=== PATIENT | female | born 1980 | race Hispanic/Latino ===

== ENCOUNTER → 2025-02-01 | Outpatient (CLI) | payer BC ==
--- NOTE | 2025-02-03 00:33 | HMCSR ---
APPROVED REPORT Indications Uncontrolled HTN Renal Artery Doppler Origin (R) 90.7/24.6 cm/secOrigin (L) 96.9/30.8 cm/sec Proximal (R) 124.6/46.1 cm/secProximal (L) 118.4/41.5 cm/sec Mid (R) 116.9/44.6 cm/secMid (L) 125.4/45.0 cm/sec Distal (R) 118.4/40.0 cm/secDistal (L) 151.4/49.7 cm/sec Renal/Aorta Ratio (R) 0.96Renal Aorta Ratio (L) 1.17 Resistive Index (R) 0.62Resistive Index (L) 0.63 Segmental A. (R) 40.8/15.4 cm/secLt. Segmental A. (L) 20.8/7.7 cm/sec Renal Measurements Kidney Size (R) 12.1x5.4x5.8 cmKidney Size (L)11.7x6.2x5.8 cm Aortic Doppler VelocityWaveform Proximal Aorta 129.2 cm/sec Technologist Impression Based on the renal/aortic ratio there is no evidence of significant stenosis in the right and left re nal arteries. Both kidneys appear to be within normal size parameters (greater than 9.0cm and symmetrical). Conclusion The proximal abdominal aorta is patent without significant stenoses or dilatations. Based on the renal/aortic ratio there is no evidence of significant stenosis in the bilateral renal arteries. Both kidneys appear to be within normal size parameters (greater than 9.0cm and symmetrical). Conclusion The proximal abdominal aorta is patent without significant stenoses or dilatations. Based on the renal/aortic ratio there is no evidence of significant stenosis in the bilateral renal arteries. Both kidneys appear to be within normal size parameters (greater than 9.0cm and symmetrical).
--- NOTE | 2025-02-03 01:32 | HMCSR ---
APPROVED REPORT EXAM: Two-dimensional and M-mode echocardiogram with Doppler and color Doppler. INDICATION ICD: R01.1 Cardiac murmur, unspecified 2D Dimensions RVDd2.8 cmLVEF(%)64.5 (>50%)LVED Vol(simp.)86.0 mL IVSd1.0 (0.7-1.1cm)FS(%)35 %LVES Vol(simp.)33.0 mL LVDd4.9 (3.8-5.6cm)Ao Root(2D)2.7 (2.0-3.7cm)LVEF(%, simp.)62 % PWd1.0 (0.7-1.1cm)LVOT diam1.9 (1.8-2.4cm)LA ESV INDEX (BP)27.95 mL/m2 LVDs3.2 (2.5-4.0cm)IVC diam1.7 cm Aortic Valve AoV Vmax1.8 m/Brigida Peak GR13.4 mmHgLVOT Vmax1.3 m/s AoV VTI0.4 mAo Mean GR6.5 mmHgLVOT VTI0.31 m REED (VMAX)2.17 cm2AVA (VTI) 2.2 cm2 Mitral Valve MV E Qkun134.8 cm/sDECEL Yygv284 ms MV A Vmax85.8 cm/sP 1/2 T56 ms E/A ratio1.2MVA (PHT)4.0 cm2 MR Max PG61 mmHg TDI E/E' Gmfbpe73.1E/E' Qgxvuyv21.4 Lateral E' Peak V9.95 cm/s Pulmonary Valve PV Vmax1.2 m/sPV VTI0.31 mPV Mean GR3.0 mmHg PV Peak GR5.9 mmHg Tricuspid Valve TR Vmax2.4 m/sRAP (EST) 83 yfOtYUMN258.7 mmHg TR Peak GR22.7 mmHg Left Ventricle The left ventricle is normal in size. No regional wall motion abnormalities noted. Mild concentric le ft ventricular hypertrophy. Left ventricular systolic function is normal, estimated LVEF is 60-65%. S tage II, diastolic dysfunction. Right Ventricle The right ventricle is normal size. The right ventricular systolic function is normal. Atria The left atrium size is normal. The right atrium size is normal. Aortic Valve Aortic valve is trileaflet. Trace aortic regurgitation. There is no aortic valvular stenosis. Mitral Valve The mitral valve is normal in structure and function. Trace mitral regurgitation. There is no mitral valve stenosis. Tricuspid Valve The tricuspid valve leaflets appear normal. Trace tricuspid regurgitation. RVSP is 23mmHg. Pulmonic Valve Pulmonic valve is not well visualized. Great Vessels The aortic root is normal in size. The IVC is normal in size and collapses >50% with inspiration. Pericardium No pericardial effusion. Conclusion The cardiac chambers are normal in size. Mild concentric left ventricular hypertrophy. No regional wall motion abnormalities noted. Left ventricular systolic function is normal, estimated LVEF is 60-65%. Stage II, diastolic dysfunction. Trace aortic regurgitation. Trace mitral regurgitation. Trace tricuspid regurgitation. PASP is 26mmHg. No pericardial effusion.
== END | disposition home or self-care (01) ==
LOC: SHCH 08:27 → EDUNIT# 09:00
PROVIDERS: ATTEND Internal Medicine Cardiovascular Disease
DX: I34.89 Other nonrheumatic mitral valve disorders (principal); I10 Essential (primary) hypertension; R01.1 Cardiac murmur, unspecified
CPT/HCPCS: 93306; 93975